=== PATIENT | female | born 1985 | race Caucasian/White ===

== ENCOUNTER 2017-08-29 09:16 | Emergency (ER) | payer OTHER ==
[~2017-08-29 09:16] MED LIST: PROAIR HFA0.09 MG/AC IH; TRINESSA LO TA1 EACH PO
[2017-08-29 09:20] VITALS: BP 108/72; PULSE 61; TEMP 98
== END 2017-08-29 09:24 | disposition home or self-care (01) ==
LOC: COL.ER 09:16
DX: S61.213D Laceration without foreign body of left middle finger without damage to nail, subsequent encounter (principal)